=== PATIENT | male | born 1960 | race Caucasian/White ===

== ENCOUNTER 2018-08-14 07:04 | Day surgery (SDC) | payer MEDICARE ==
[~2018-08-14 07:04] MED LIST: ACETAMINOPHEN 1,000 MG/100 ML BTL IV ONE; CEFAZOLIN 2 Gram 2 GM/50 ML BAG IVPB ONE; CELECOXIB 100 MG CAPSULE PO ONE; FAMOTIDINE 20MG TABLET PO ONE; MECLIZINE 25 MG TABLET PO ONE; METOCLOPRAMIDE 10 MG TABLET PO ONE
[2018-08-14] MEDS ORDERED: PHENYLEPHRINE HCL 10 MG/ML VIAL IVP ONE (07:05)
[2018-08-14] MEDS ORDERED: GLYCOPYRROLATE 0.2 MG/ML ML IV ONE (07:05)
[2018-08-14] MEDS ORDERED: DEXMEDETOMIDINE HCL 200 MCG/2 ML VIAL IV ONE (07:05)
[2018-08-14] MEDS ORDERED: MIDAZOLAM HCL 2MG/2ML VIAL IV ONE (07:05)
[2018-08-14] MEDS ORDERED: DIPHENHYDRAMINE HCL 50 MG/ML VIAL IVP ONE (07:05)
[2018-08-14] MEDS ORDERED: BUPIVACAINE 0.25% W/EPI MPF 30ML VIAL IVP ONE (07:05)
[2018-08-14] MEDS ORDERED: DEXAMETHASONE 4 MG/ML 1ML VIAL IVP ONE (07:05)
[2018-08-14] MEDS ORDERED: ROPIVACAINE HCL (NAROPIN) /PF 5MG/ML 20ML VIAL IV ONE (07:05)
[2018-08-14] MEDS ORDERED: PROPOFOL 10 MG/ML VIAL IV ONE (07:05)
[2018-08-14] MEDS ORDERED: BUPIVACAINE LIPOSOME 266MG/20ML VIAL IV ONE ×2 (07:05)
[2018-08-14] MEDS ORDERED: LIDOCAINE 2% MDV (20MG/ML) 20ML VIAL IV ONE (07:05)
[2018-08-14] MEDS ORDERED: SENNOSIDES/DOCUSATE SODIUM UD CAPSULE PO PRN (11:00)
[2018-08-14] MEDS ORDERED: ONDANSETRON HCL IV 4 MG/2 ML VIAL IVP PRN (11:00)
[2018-08-14] MEDS ORDERED: TRAMADOL HCL 50 MG TABLET PO PRN ×2 (11:00)
[2018-08-14] MEDS ORDERED: MAGNESIUM HYDROXIDE 30 ML UDC PO PRN (11:00)
[2018-08-14] MEDS ORDERED: AL HYDROX/MAG HYDROX 30ML UD PO PRN (11:00)
[2018-08-14] MEDS ORDERED: DIPHENHYDRAMINE HCL 25 MG CAPSULE PO PRN (11:00)
[2018-08-14] MEDS ORDERED: ZOLPIDEM TARTRATE 5 MG TABLET PO PRN (11:00)
[2018-08-14] MEDS ORDERED: METOCLOPRAMIDE HCL 10 MG/2 ML VIAL IVP PRN (11:00)
[2018-08-14] MEDS ORDERED: HYDROMORPHONE HCL 2 MG/ML VIAL IV PRN (11:00)
[2018-08-14] MEDS ORDERED: RINGERS SOLUTION,LACTATED 1,000 ML IV PRN (11:34)
[2018-08-14] MEDS: RINGERS SOLUTION,LACTATED 1,000 ML IV SCH (12:29)
[2018-08-14] MEDS ORDERED: TRANEXAMIC ACID 1,000 MG in 0.9 % SODIUM CHLORIDE 100ML 100 ML IVPB ONE (13:00)
[2018-08-14] MEDS: ACETAMINOPHEN 1,000 MG/100 ML BTL IV SCH ×2 (14:20→21:07)
--- NOTE | 2018-08-14 14:30 | Operative Note ---
DATE OF SURGERY: 08/14/2018 Surgeon: Urban Staley DO PREOPERATIVE DIAGNOSIS: Primary osteoarthritis of the right knee. POSTOPERATIVE DIAGNOSIS: Primary osteoarthritis of the right knee. OPERATION: Right total knee arthroplasty. DESCRIPTION OF PROCEDURE: This 57-year-old male was taken to the operating room and placed in the supine position on the operating room table. A spinal anesthetic was administered by the department of anesthesia. The right lower leg was elevated. It was prepped with Hibiclens and draped in the usual sterile fashion. It was exsanguinated and the tourniquet inflated to 300 mmHg. All scrub personnel wore personal isolation suits. An anterior longitudinal midline incision was made followed by a medial parapatellar arthrotomy incision. An intracondylar drill hole was made for the intramedullary alignment mayur and a 9 mm 6-degree valgus cut was made in the distal femur. The wafer of bone was removed. Sizing jig was affixed and a size 67.5 was seen to be the appropriate size. This was pinned in 3 degrees of external rotation. The appropriate cuts were made and the wafers of bone removed. We then directed our attention to the proximal tibia, and an extramedullary alignment guide was used to cut the proximal tibia referencing a 10 mm cut off the medial tibial plateau because of much more severe lateral compartment disease. The cutting block was pinned in about 3-degree posterior slope, and the appropriate cut was made after the jig had been set to the appropriate position. The wafer of bone was removed and remnants of the menisci and osteophytes were removed from the posterior aspect of the joint. The tibial was sized to a size 79. The stem punch was used. The patella was cut and restored to anatomic height with a 34 x 8.6 mm trial. Subsequently, the trial components were inserted with a 67.5 CR femur and a 79 tibial baseplate with a 10 mm bearing. The knee was taken through range of motion with full extension and 135 degrees of flexion. No collateral or patellofemoral instability was identified. All trial components were then removed and the wound copiously irrigated with pulse lavage, lactated Ringer's solution. Exparel was injected into the posterior, medial, and lateral corners of the joint and after insertion of the final components, the remainder was injected into the periosteum and joint capsule of the proximal tibia and distal femur. All bony surfaces were dried. All components were cemented. The excess cement was removed after the insertion of each component. Initially the size 79 tibial baseplate was cemented followed by the insertion of the tibial bearing. The femoral component subsequently cemented and finally the patella. Once the cement had hardened, the knee was again taken through range of motion with excellent stability of all components being identified. The wound was irrigated and suctioned and a drain placed through a separate stab incision. The arthrotomy incision was closed with a #2 Vicryl. The subcutaneous tissue was closed with 0 Vicryl and the skin was stapled. Sterile dressings with a Polar Care were applied. The patient was taken to the recovery room in satisfactory condition. GROSS PATHOLOGY: This patient demonstrated severe osteoarthritis with full-thickness articular cartilage loss noted in all 3 compartments, the lateral compartment being the most severe but full-thickness articular cartilage loss also noted in the medial tibial plateau and medial femoral condyle. Final components inserted were a [employer] Vanguard size 67.5 cruciate retaining femoral component, a size 79 tibial baseplate, a 10 mm anterior stabilized D1 bearing was used and a 34 x 8.5 mm patella was used. ABIOLA
[2018-08-14] MEDS: CEFAZOLIN 2 Gram 2 GM/50 ML BAG IVPB SCH (16:20)
[2018-08-14] MEDS: OXYCODONE HCL 5 MG TABLET PO PRN ×2 (16:40→21:15)
--- NOTE | 2018-08-14 19:29 | Rehab Evaluation ---
Patient Information - Patient Information Diagnosis: OA R knee, s/p TKA Ordered Treatment: PT Evaluate and Treat Status: Initial Evaluation Surgery: Yes (R TKA) Date of Surgery: 08/14/18 History: Detail (Pt describes progressive degeneration of B knees, has had arthroscopies on both knees. Is planning to do L knee once recovered from R TKA.) Past Med/Samir Hx Detail: Detail Past Medical/Surgical Hx: PAST MEDICAL/SURGICAL HISTORY Past Surgical History bilat knee scopes right CMC arthroplasty eye sx right foot sx 2012 parathyroid removal PMH - Respiratory Hx Respiratory Disorders Yes Hx Sleep Apnea Yes: possibly Comment: Discussed w/ spouse. Pt to follow up after discharge. PMH - Cardiovascular Hx Cardiovascular Disorders Yes Hx Hypertension Yes: on meds good control Exercise Tolerance Fair PMH - Neuro Hx Neurological Disorders No PMH - GI Hx Gastrointestinal Disorders Yes Hx Gastroesophageal Reflux Yes: on meds fair control PMH - Hx Genitourinary Disorders No PMH - Endocrine Hx Endocrine Disorders Yes Hx Diabetes Yes: borderline no meds Hx Thyroid Disease Yes: parathyroid disease PMH - Musculoskeletal Hx Musculoskeletal Disorders Yes Hx Arthritis Yes: RA and OA PMH - Psych Hx Psychiatric Problems Yes Hx Anxiety Yes: Takes Zoloft Hx Depression Yes: Takes Zoloft PMH - Hematology/Oncology Hx Hematology/Oncology No Disorders Premorbid Status: Detail (Pt was ambulating independently w/o assistive device prior to surgery, but had difficulty w/prolonged walking due to B knee pain.) Social History: Detail (Lives w/spouse in ground-level apartment near [place] , one step to enter w/no handrail. He has tub/shower combo w/hand-held shower head and a borrowed shower chair. Toilet is standard height. Walker is room is his [id number]-[id number]'s; it may be too short to use effectively. Has cane in the car.) Precautions: [place], Fall - Time With Patient Total Time Spent With Patient (Min): 45 Treatment Procedures: Detail (PT Evaluation, initiated mobility training.) Subjective Information - Subjective Information Per Patient (Pt was sleeping soundly and was difficult to arouse or keep awake earlier this afternoon. He was awake/alert and cooperative for therapy at 6:30 p.m. He reported having received oral pain medication at about 4:30; reported pain at 5/10.) Objective Data - Pain Pain Present: Yes Pain Intensity: 5 (R knee) Pain Scale Used: Numeric (1 - 10) - Mental Status Patient Orientation: Oriented x3 - Visual Perception Appears within normal limits for therapeutic activities - ROM Not within normal limits (CPM for R knee set at 0 degrees extension to 60 degrees flexion. R hip and ankle and L hip/knee/ankle are grossly WNL.) - Strength/Tone Not within normal limits (R hip flexion/ext/abd/add grossly 4/5; 3-/5 in R knee flexion/extension; 4/5 R ankle df. 4+/5 in all L LE muscle groups.) - Coordination Appears within normal limits for therapeutic activities - Bed Mobility Needs Assist (Used overhead trapeze for scooting to edge of bed and positioning self upon return to bed. Minimal assist for R LE getting out of bed and into bed.) - Transfers Needs Assist (CGA for sit/stand transfers from bed to walker and to/from toilet. Used bedrail and grab bar to assist.) - Balance Balance Sitting: Good Balance Standing: Fair - Sensation Intact - Gait Detail (Ambulated w/front wheeled walker w/CGA and VCs for technique from bedside to bathroom and returned to bed (20 feet total). Little weight bearing R LE.) Therapy Assessment - Therapy Assessment Detail (Pt exhibits mobility and gait impairments consistent with his post- surgical condition. He is a good candidate for inpatient physical therapy to facilitate safe return home.) Patient Education - Patient Education Teaching Topic: Disease Process, Equipment Use, Exercise/Activity Response: Reinforcement Needed, Verbalize Understanding Teaching Method: Discussion Teaching Recipient: Patient, Family Barriers To Learning: None Problem List - Problem List Physical Therapy Problem List: Detail (1. Requires minimal assist and use of trapeze for bed mobility. 2. Requires CGA for transfers. 3. Difficulty walking. 4. Impaired R knee ROM and strength.) Goals - Goals Physical Therapy Goals: 1. Pt will require supervision only for bed mobility and transfers. 2. Pt will safely and independently ambulate over household distances w/front wheeled walker. 3. Pt will require supervision only for ascending/descending steps. 4. Pt will be independent in a beginning home program. Prognosis - Prognosis Good Plan - Plan Physical Therapy Plan: Pt will be seen twice on Saturday for review of HEP, mobility and gait training. He has outpatient physical therapy arranged in [place] for next week.
[2018-08-14] MEDS: ASPIRIN 325 MG TAB ENTERIC-COATED PO SCH (21:08)
[2018-08-14] MEDS: GABAPENTIN 300 MG CAPSULE PO SCH (21:08)
[2018-08-14] MEDS: PANTOPRAZOLE SODIUM 40 MG TABLET PO SCH (21:08)
[2018-08-14] MEDS ORDERED: SERTRALINE HCL 50 MG TABLET PO SCH (22:00)
[2018-08-15] MEDS: ACETAMINOPHEN 1,000 MG/100 ML BTL IV SCH (01:26)
[2018-08-15] MEDS: CEFAZOLIN 2 Gram 2 GM/50 ML BAG IVPB SCH ×2 (01:27→08:16)
[2018-08-15] MEDS: RINGERS SOLUTION,LACTATED 1,000 ML IV SCH (05:47)
[2018-08-15] MEDS: OXYCODONE HCL 5 MG TABLET PO PRN ×2 (05:47→09:41)
[2018-08-15 06:48] LABS: HEMATOCRIT 41.6 % (42.0-52.0); HEMOGLOBIN 13.7 gm/dl (14.0-18.0); MEAN CELL VOLUME 88.1 fl (81-97); MEAN CORPUSCULAR HGB CONC 32.9 g/dl (32-36); MEAN PLATELET VOLUME 10.8 fl (7.4-10.4); PLATELET COUNT 238 K/uL (130-400); RED BLOOD COUNT 4.72 M/uL (4.40-5.70); RED CELL DISTRIBUTION WIDTH 13.8 % (11.5-14.5); WHITE BLOOD COUNT W/O DIFF 16.2 K/uL (4.2-12.2)
[2018-08-15] MEDS ORDERED: LEVOTHYROXINE SODIUM 75 MCG TABLET PO SCH (07:00)
[2018-08-15] MEDS ORDERED: PREDNISONE 5 MG TAB PO SCH (08:00)
[2018-08-15] MEDS: GABAPENTIN 300 MG CAPSULE PO SCH (09:40)
[2018-08-15] MEDS: ASPIRIN 325 MG TAB ENTERIC-COATED PO SCH (09:43)
[2018-08-15] MEDS: PANTOPRAZOLE SODIUM 40 MG TABLET PO SCH (09:43)
--- NOTE | 2018-08-15 09:48 | Rehab Evaluation ---
Patient Information - Patient Information Diagnosis: OA R knee, s/p TKA Ordered Treatment: OT Evaluate and Treat Status: Initial Evaluation Surgery: Yes (R TKA) Date of Surgery: 08/14/18 History: Detail (Pt describes progressive degeneration of B knees, has had arthroscopies on both knees. Is planning to do L knee once recovered from R TKA.) Past Medical/Surgical Hx: PAST MEDICAL/SURGICAL HISTORY Past Surgical History bilat knee scopes right CMC arthroplasty eye sx right foot sx 2012 parathyroid removal PMH - Respiratory Hx Respiratory Disorders Yes Hx Sleep Apnea Yes: possibly Comment: Discussed w/ spouse. Pt to follow up after discharge. PMH - Cardiovascular Hx Cardiovascular Disorders Yes Hx Hypertension Yes: on meds good control Exercise Tolerance Fair PMH - Neuro Hx Neurological Disorders No PMH - GI Hx Gastrointestinal Disorders Yes Hx Gastroesophageal Reflux Yes: on meds fair control PMH - Hx Genitourinary Disorders No PMH - Endocrine Hx Endocrine Disorders Yes Hx Diabetes Yes: borderline no meds Hx Thyroid Disease Yes: parathyroid disease PMH - Musculoskeletal Hx Musculoskeletal Disorders Yes Hx Arthritis Yes: RA and OA PMH - Psych Hx Psychiatric Problems Yes Hx Anxiety Yes: Takes Zoloft Hx Depression Yes: Takes Zoloft PMH - Hematology/Oncology Hx Hematology/Oncology No Disorders Premorbid Status: Detail (Pt was ambulating independently w/o assistive device prior to surgery, but had difficulty w/prolonged walking due to B knee pain.) Social History: Detail (Lives w/spouse in ground-level apartment near [place] , one step to enter w/no handrail. He has tub/shower combo w/hand-held shower head and a borrowed shower chair. Toilet is standard height. He is planning to purchase a toilet riser. Walker in room is his sousdo-jf-oci's; it may be too short to use effectively. Has cane in the car. He and spouse share home mgmt, meal prep and laundry.) Precautions: [place], Fall - Time With Patient Total Time Spent With Patient (Min): 40 Treatment Procedures: Detail (OT eval low complexity) Subjective Information - Subjective Information Per Patient Objective Data - Pain Pain Present: Yes (06/27) - Mental Status Patient Orientation: Oriented x3 - Visual Perception Appears within normal limits for therapeutic activities - ROM Within normal limits (Cody UE AROM WNL) - Strength/Tone Within normal limits (Cody UE strength WNL) - Coordination Appears within normal limits for therapeutic activities - Bed Mobility Independent (Ind with supine to sit) - Transfers Independent (Ind with sit to stand from EOB and chair) - Balance Balance Sitting: Good Balance Standing: Good - Sensation Intact - Gait Detail (Pt ambulated 40 feet with 2 wheeled walker Indly.) - ADL's/IADL's Detail (Pt educated and demonstrated learning of modified LE dressing techniques including doffing slipper socks and donning underwear, shorts and slip on shoes. Pt educated re: shower and kitchen modifications and safety, he verbalized learning.) Therapy Assessment - Therapy Assessment Detail (Pt is Ind with modified techniques for LE dressing.) Problem List - Problem List Physical Therapy Problem List: Detail (1. Requires minimal assist and use of trapeze for bed mobility. 2. Requires CGA for transfers. 3. Difficulty walking. 4. Impaired R knee ROM and strength.) Occupational Therapy Problem List: Detail (No IP OT goals identified.) Goals - Goals Physical Therapy Goals: 1. Pt will require supervision only for bed mobility and transfers. 2. Pt will safely and independently ambulate over household distances w/front wheeled walker. 3. Pt will require supervision only for ascending/descending steps. 4. Pt will be independent in a beginning home program. Occupational Therapy Goals: No IP OT goals identified. Prognosis - Prognosis Good Plan - Plan Physical Therapy Plan: Pt will be seen twice on Saturday for review of HEP, mobility and gait training. He has outpatient physical therapy arranged in [place] for next week. Occupational Therapy Plan: No further IP OT recommended. Thank you for this referral.
[2018-08-15] MEDS ORDERED: CELECOXIB 100 MG CAPSULE PO SCH (10:00)
[2018-08-15] MEDS ORDERED: LISINOPRIL 20 MG TABLET PO SCH (10:00)
[2018-08-15] MEDS ORDERED: OXYCODONE/APAP 7.5MG/325MG TABLET PO PRN ×2 (11:00)
[2018-08-15] MEDS ORDERED: ACETAMINOPHEN 325 MG TAB PO PRN (11:00)
--- NOTE | 2018-08-15 11:31 | Physical Therapy Tx Note ---
Physical Therapy Tx Note - Treatment Note Tolerated: Good Total Time Spent With Patient: 20 Physical Therapy Tx Note: Detail (Patient was up in chair upon arrival with complaints of 4/10 R knee pain. Patient was IND with sit to stand transfer. Patient ambulated approx 125' using a front wheeled walker and supervision for safety. WBAT on R LE. Patient also ambulated a flight of 3 stairs using a cane, hand rail and supervision for safety. Patient is IND with HEP. Patient was left sitting EOB with call light in reach and nursing notified.) Physical Therapy Problem List: Detail (1. Requires minimal assist and use of trapeze for bed mobility. 2. Requires CGA for transfers. 3. Difficulty walking. 4. Impaired R knee ROM and strength.) Physical Therapy Goals: 1. Pt will require supervision only for bed mobility and transfers.(Goal Met). 2. Pt will safely and independently ambulate over household distances w/front wheeled walker.(Goal Met). 3. Pt will require supervision only for ascending/descending steps. (Goal Met). 4. Pt will be independent in a beginning home program. (Goal Met) Prognosis: Good Physical Therapy Plan: Patient has met all IP PT goals and will be discharged to OP PT.
--- NOTE | 2018-08-18 09:40 | Discharge Summary ---
DATE OF ADMISSION: 08/14/2018 DATE OF DISCHARGE: 08/15/2018 ADMITTING DIAGNOSIS: Osteoarthritis of the right knee. DISCHARGE DIAGNOSIS: Osteoarthritis of the right knee. OPERATIVE PROCEDURE: Elective right total knee arthroplasty. DESCRIPTION: This 57-year-old male was admitted to the hospital for elective total knee arthroplasty and tolerated the operative procedure well. The drain was removed the first postoperative day. His pain was controlled and he did clear physical therapy and was ready for discharge the first postoperative day. The patient did not demonstrate any evidence of calf pain or any sign of DVT. No chest pain or shortness of breath. The patient will be discharged home with outpatient physical therapy scheduled for Saturday. He will wear his SWATI hose during the day and remove them at night. He will take aspirin 325 mg daily until seen back in the office on 08/28/2018. He was given a prescription for [place] 7.5/325, #40, 1 every 4 hours as necessary for pain. Routine wound care instructions were given. He will follow up in the clinic in 2 weeks. Should he have any problems prior to being seen, he was instructed to call my office. ABIOLA
== END 2018-08-15 15:15 | disposition home or self-care (01) ==
LOC: SUR 07:04 → MEDSURG 11:22 → SUR 08-15 15:15
PROVIDERS: ATTEND Orthopaedic Surgery
DX: M17.11 Unilateral primary osteoarthritis, right knee (principal); I10 Essential (primary) hypertension; M06.9 Rheumatoid arthritis, unspecified; G47.33 Obstructive sleep apnea (adult) (pediatric)
CPT/HCPCS: 76942; 85025; 94760; J1200; J2370; J7120; J7512